=== PATIENT | female | born 1935 | race Caucasian/White ===

== ENCOUNTER → 2016-08-17 | Outpatient (CLI) | payer MEDICARE, OTHER ==
[~2016-08-17] MED LIST: AMIO200T; ATOR10TA23; GLUC1CAP40; MAGN500C; METO-448; OMEG-135; OMEP20CA9; SOLI10TA5; VITA400C41
--- NOTE | 2016-08-17 08:32 | RADRPT ---
PROCEDURE: US Pelvis CLINICAL INDICATION: Pelvic pain TECHNIQUE: Transabdominal and transvaginal sonographic evaluation of the pelvis was performed. COMPARISON: None. FINDINGS: Status post hysterectomy. The ovaries are not visualized. No adnexal mass. No free pelvic fluid is demonstrated. IMPRESSION: Status post hysterectomy. Ovaries not visualized. No free fluid or adnexal masses. RPTAT:PP .Shady Ramos MD, MD Date Time Electronically viewed and signed by .Shady Ramos MD, on 08/17/2016 08:32 .V/
--- NOTE | 2016-08-17 10:31 | RADRPT ---
PROCEDURE: US Abdomen and Retroperitoneum. CLINICAL INDICATION: Abdominal pain TECHNIQUE: Multiple real-time longitudinal and transverse images were acquired of the patient's ab domen and retroperitoneum utilizing a curved array transducer. COMPARISON: None. FINDINGS: The liver is normal in size and echogenicity. No focal liver mass. Portal vein demonstrates hepatopetal flow. Gallbladder is normal. There are no gallstones. No gallbladder wall thickening or pericholecystic fluid. No intra- or extrahepatic biliary dilation. Pancreas is partially visualized and grossly unremarkable. Spleen is normal in size. Kidneys demonstrate normal cortical thickness and echogenicity. No hydronephrosis. There is a pola gn appearing cysts seen in the right kidney measuring 6 cm. No ascites. Proximal aorta and IVC are unremarkable. MEASUREMENTS: Liver: 11.8 cm Common Duct: 0.5 cm Right Kidney: 10.0 cm Left Kidney: 9.9 cm Spleen: 8.7 cm IMPRESSION: No sonographic evidence of an acute or significant abnormality in the abdomen and retroperitoneum. Septated benign appearing cyst seen in the right kidney. RPTAT:PP .Shady Ramos MD, MD Date Time Electronically viewed and signed by .Shady Ramos MD, on 08/17/2016 10:30 .V/
== END | disposition home or self-care (01) ==
LOC: U/S 07:54
PROVIDERS: ATTEND Internal Medicine
DX: R10.9 Unspecified abdominal pain (principal)
CPT/HCPCS: 76700; 76856

== ENCOUNTER → 2018-08-13 | Outpatient (CLI) | payer MEDICARE, OTHER ==
[~2018-08-13] MED LIST changes: +SOLI10TA2; -SOLI10TA5
== END | disposition home or self-care (01) ==
LOC: U/S 10:39
PROVIDERS: ATTEND Internal Medicine
DX: Q61.01 Congenital single renal cyst (principal); R10.32 Left lower quadrant pain; R10.12 Left upper quadrant pain; Z90.710 Acquired absence of both cervix and uterus
CPT/HCPCS: 76700; 76856

== ENCOUNTER → 2018-10-28 | Outpatient (CLI) | payer MEDICARE, OTHER | END | disposition home or self-care (01) | LOC: VAS 12:40 | PROVIDERS: ATTEND Internal Medicine | DX: M79.605 Pain in left leg (principal); M79.604 Pain in right leg | CPT/HCPCS: 93970 ==